=== PATIENT | male | born 1995 | race Caucasian/White ===

== ENCOUNTER 2024-12-28 10:01 | Emergency (ER) | payer OTHER, SELFPAY ==
[2024-12-28 10:12] VITALS: BP 151/79; PULSE 85; RESP 18; TEMP 36.2; O2SAT 98
--- NOTE | 2024-12-28 10:53 | ED_ITS ---
HPI - Skin/Abscess/Foreign Bdy General Chief complaint: Skin/Abscess/Foreign Body Stated complaint: Skin Rash Time Seen by Provider: 12/28/24 10:48 Source: patient and RN notes reviewed Mode of arrival: ambulatory Limitations: no limitations History of Present Illness HPI narrative: Patient presents today complaining of a some insect bites to the right lateral abdomen that were sustained 5 days ago. He has developed some redness around the that has spread significantly since that time. He also reports 1 insect bite to the right posterior ankle around the same time. It developed a small blister that has since popped and some redness has developed around it. He has been using hydrocortisone and oral Benadryl as well as soaking in oatmeal baths. All of these have provided some short-term relief but not much improvement. Related Data Allergies Allergy/AdvReac Type Severity Reaction Status Date / Time No Known Allergies Allergy Verified 12/28/24 10:45 [facility] Comments At time of signature, I have reviewed and agree with nursing past medical, surgical, social and family history unless otherwise noted. Please see nursing chart for further information. There is no relevant family history pertinent to the presenting complaint Exam Narrative: GENERAL: Well-appearing, well-nourished, and in no acute distress. HEAD: Normocephalic, atraumatic. EYES: EOMI. No redness or drainage. Conjunctivae normal. ENT: Mucous membranes pink and moist. NECK: Normal AROM. CHEST: No respiratory distress. EXTREMITIES: Normal range of motion. No edema. SKIN: Warm, dry. Capillary refill normal. Normal skin turgor. Large erythematous area of coalesced urticaria with some satellite lesions to the right lateral abdomen with some visible insect bites in the center. No induration, crusting, or drainage. Nontender. Right posterior ankle shows a approximately a new 1 cm round area of erythema and mild induration with a honey crusted center that is mildly tender. No fluctuance. No edema. NEURO: No focal deficits. Alert and oriented x3. Gait steady. PSYCH: Normal affect. No signs of depression or anxiety. Course Course Level of Care: Express Care Visit Vital Signs Vital signs: Vital Signs Temperature 97.1 F L 12/28/24 10:12 Pulse Rate 85 12/28/24 10:12 Respiratory Rate 18 12/28/24 10:12 Blood Pressure 151/79 H 12/28/24 10:12 Pulse Oximetry 98 12/28/24 10:12 Oxygen Delivery Room Air 12/28/24 10:12 Temperature 97.1 F L 12/28/24 10:12 Pulse Rate 85 12/28/24 10:12 Respiratory Rate 18 12/28/24 10:12 Blood Pressure 151/79 H 12/28/24 10:12 Pulse Oximetry 98 12/28/24 10:12 Oxygen Delivery Room Air 12/28/24 10:12 Reviewed MDM - Skin/Abscess/Foreign Bdy MDM Narrative Medical decision making narrative: 29-year-old male patient presents today with large area of erythema to the right lateral abdomen after he sustained several bug bites 5 days ago. Also has an insect bite to the right posterior ankle that was sustained around the same period of time but has since popped. Euxg-dmz-vcjxana medications and treatments have provided little relief. Upon exam, large coalesced urticarial lesion with several visible insect bites in the center to the right lateral abdomen and 1 small a insect bite surrounded by erythema to the right posterior ankle with some crusting in the center consistent with impetigo. Patient will be prescribed a course of prednisone for the urticarial lesion, and some mupiroc in for the impetigo lesion on the ankle. Vital signs stable. Patient agrees with plan. Anticipatory guidance given. Differential Diagnosis Differential diagnosis: Likely abscess of skin or subcutaneous tissue, urticaria, cellulitis, insect bites, impetigo and contact dermatitis Critical Care Time Critical Care Time Critical Care Time: No Discharge Plan Discharge Clinical Impression: Allergic reaction to insect bite Infected insect bite Qualifiers: Encounter type: initial encounter Qualified Code(s): W57.XXXA - Bitten or stung by nonvenomous insect and other nonvenomous arthropods, initial encounter Patient Disposition: Home Condition: Stable Instructions: Insect Bite or Sting (ED), General Allergic Reaction (ED) Additional Instructions: Please take the prednisone as directed to help with the allergic reaction to your abdomen. Please use the mupirocin ointment to your ankle. You may continue [id number]-[id number] treatment as needed. Follow-up with your PCP in 3 days if symptoms are not improving. Patient Language: Finnish Prescriptions: New prednisone 20 mg tablet 40 mg PO DAILY 5 Days Qty: 10 0RF mupirocin 2 % ointment 1 applic topical BID 7 Days Qty: 22 0RF Follow-up/Referrals: PHYSICIAN,WAREHOUSE STOCK CLERK [Primary Care Provider] - Time of Disposition: 11:01
--- OUTSIDE RECORDS SUMMARY | 2024-12-28 11:00 | XMS_ITS | Clinical Summary ---
Author Organization [facility] Address [address] [place] [address] Care Team Providers Care Produce Team Lead Name Role Phone None, Provider MD Primary Care Provider Unavaila ble Medications methylPREDNISol LAZARO soriano, (MEDROL DOSEPAK) 4 MG tabletIndicatio ns:Non-recurren t acute serous otitis media of both ears 6 TABLETS ON DAY ONE, 5 TABLETS DAY TWO, 4 TABLETS DAY THREE, 3 TABLETS DAY FOUR, 2 TABLETS DAY FIVE, AND 1 TABLET DAY SIX 1 each 12/18/2023 Active Active Problems No known active problems Immunizations Immunization Administration Dates Next Due Dtap (Acel-Immune) 08/27/2002, 0,02/17/1998,1997 ,1997 HPV 02/21/2012,12/04/2011 HPV4 (Gardasil) 07/24/2012 Hepatitis A (Havrix [address]) 07/24/2012, 012 Hepatitis B Pediatric 1997,1997 Hib (Generic) 07/28/1998,1997,1997 Hib-Hepatitis B (Comvax) 02/17/1998 MMR (MMRII) 08/27/2002,07/28/1998 Meningococcal (Menactra) 12/23/2014 Meningococcal Vac A,C,Y,W-135 Sc 12/04/2011 Polio IPV (Ipol) 08/27/2002 Polio Opv (Generic) 02/17/1998,1997,1997 Tdap (Generic) 12/04/2011 Social History Tobacco Use Types Packs/Day Years Used Date Smoking Tobacco: Never Smokeless Tobacco: Never Tobacco Cessation:Counseling Given: Not Answered Alcohol Use Standard Drinks/Week Comments Yes 0 (1 standard drink = 0.6 oz pur e alcohol) socially Sex and Gender Information Value Date Recorded Sex Assigned at Not on file Legal Sex Male 1:52 PM CDT Gender Identity Not on file Sexual Orientation Not on file Last Filed Vital Signs Vital Sign Reading Time Taken Comments Blood Pressure - - Pulse 77 12/18/2023 2:48 PM CDT Temperature 36.8 C (98.3 F) 12/18/2023 2:14 PM CDT Respiratory Rate 16 12/18/2023 2:14 PM CDT Oxygen Saturation 99% 12/18/2023 2:48 PM CDT Inhaled Oxygen Concentration - - Weight 102.1 kg (225 lb) 12/18/2023 2:14 PM CDT Height 177.8 cm (5' 10) 12/18/2023 2:14 PM CDT Body Mass Index 32.28 12/18/2023 2:14 PM CDT Plan of Treatment Health Maintenance Due Date Last Done Comments Annual Physical 2000 Hepatitis C 07/22/2015 DTaP, Tdap and Td Vaccines (7 - Td or Tdap) 12/03/2021 12/04/2011, 08/27/2002, 01/04/2000, Additional history exists COVID-19 Vaccine ( season) 2024 01/29/2021, 01/06/2021 PHQ-2 (Physician [place]) 05/13/2024 Hepatitis B Vaccines Completed 02/17/1998, 1997, 1997 HPV Vaccines Completed 07/24/2012, 02/10, 12/04/2011 Meningococcal Vaccine Completed 12/23/2014, 012 Meningococcal B Vaccine Aged Out No l onger eligible based on patient's age to complete this topic Pneumococcal Vaccine: Pediatrics (0 to 5 Years) and At-Risk Patients (6 to 49 Years) Aged Out No longer eligible based on patient's age to complete this topic RSV Immunizations Under 20 Months Aged Out No longer eligible based on patient's age to complete this topic Insurance [employer] Care Teams Produce Team Lead Relationship Specialty Start Date End Date None, Provider, MD PCP - General UNKNOWN PHYSICIAN SPECIALTY 12/18/23
--- OUTSIDE RECORDS SUMMARY | 2024-12-28 11:00 | XMS_ITS | Clinical Summary ---
Author Organization [facility] [employer] [place] Address [address] [address] Care Team Providers Care Gradall Operator Name Role Phone Unavailable Primary Care Provider Unavailabl e Active Problems No known active problems Encounters Date Type Department Care Team Description 12/15/2024 External Device Data [facility] ABSTRACTION Provider, Abstract 11/10/2024 External Device Data [facility] ABSTRACTION Provider, Abstract 10/28/2024 External Device Data [facility] ABSTRACTION Provider, Abstract 10/02/2024 External Device Data [facility] ABSTRACTION Provider, Abstract 10/01/2024 External Device Data [facility] ABSTRACTION Provider, Abstract 09/30/2024 External Device Data [facility] ABSTRACTION Provider, Abstract 09/30/2024 External Device Data [facility] ABSTRACTION Provider, Abstract 09/29/2024 External Device Data [facility] ABSTRACTION Provider, Abstract 09/28/2024 Results Follow-Up [facility] [address] [place] [address] Josefa Casper MD TSH, LIPID PANEL, CBC WITH DIFFERENTIAL, COMPREHENSIVE METABOLIC PANEL from Last 3 Months Social History Tobacco Use Types Packs/Day Years Used Date Smoking Tobacco: Never Assessed Sex and Gender Information Value Date Recorded Sex Assigned at Not on file Legal 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 Gender Identity Not on file Sexual Orientation Not on file Last Filed Vital Signs Vital Sign Reading Time Taken Comments Blood Pressure 130/88 09/25/2024 9:50 AM CDT Pulse - - Temperature - - Respiratory Rate - - Oxygen Saturation - - Inhaled Oxygen Concentration - - Weight 103.4 kg (228 lb) 09/25/2024 9:50 AM CDT Height 177.8 cm (5' 10) 09/25/2024 9:50 AM CDT Body Mass Index 32.71 09/25/2024 9:50 AM CDT Plan of Treatment Health Maintenance Due Date Last Done Comments DTAP/TDAP/TD VACCINES (7 - T d or Tdap) 12/03/2021 12/04/2011, 08/27/2002, 01/04/2000, Additional history exists INFLUENZA VACCINE (#1) 2024 HEPATITIS B VACCINES Completed 02/17/1998, 1997, 1997 HPV VACCINES Completed 07/24/2012, 02/10, 12/04/2011
== END 2024-12-28 11:08 | disposition home or self-care (01) ==
PROVIDERS: Emergency Provider Nurse Practitioner
DX: T63.481A Toxic effect of venom of other arthropod, accidental (unintentional), initial encounter (principal)
CPT/HCPCS: 99203; G0463